=== PATIENT | male | born 1955 | race Caucasian/White ===

== ENCOUNTER 2022-01-19 22:49 | Emergency (ER) | payer BC ==
[2022-01-20] MEDS ORDERED: ZOFRAN ODT 4 MG4 MG SL (02:52)
[2022-01-20] MEDS ORDERED: HYDROCODON-ACE1 EAC2 PO (02:52)
== END 2022-01-20 03:05 | disposition home or self-care (01) ==
LOC: ER1 22:49
DX: S92.064A Nondisplaced intraarticular fracture of right calcaneus, initial encounter for closed fracture (principal); S92.211A Displaced fracture of cuboid bone of right foot, initial encounter for closed fracture; S92.251A Displaced fracture of navicular [scaphoid] of right foot, initial encounter for closed fracture; E78.5 Hyperlipidemia, unspecified; W11.XXXA Fall on and from ladder, initial encounter; Y92.009 Unspecified place in unspecified non-institutional (private) residence as the place of occurrence of the external cause; I10 Essential (primary) hypertension
CPT/HCPCS: 29515; 73610; 73630; 73650; 73700; 99284

== ENCOUNTER → 2022-03-01 | Outpatient (CLI) | payer BC ==
[~2022-03-01] MED LIST: HYDROCODON-ACE1 EAC2 PO; ZOFRAN ODT 4 MG4 MG SL
== END ==
LOC: KOH-I 08:53
DX: S92.001D Unspecified fracture of right calcaneus, subsequent encounter for fracture with routine healing (principal)
CPT/HCPCS: 73630; 73650

== ENCOUNTER → 2022-03-31 | Outpatient (CLI) | payer BC | LOC: KOH-I 08:38 | DX: S92.001D Unspecified fracture of right calcaneus, subsequent encounter for fracture with routine healing (principal) | CPT/HCPCS: 73630 ==

== ENCOUNTER → 2022-05-03 | Outpatient (CLI) | payer BC | LOC: KOH-I 08:23 | DX: S92.014A Nondisplaced fracture of body of right calcaneus, initial encounter for closed fracture (principal) | CPT/HCPCS: 73650 ==